=== PATIENT | female | born 1980 | race Caucasian/White ===

== ENCOUNTER 2018-02-05 22:10 | Emergency (ER) | payer SELFPAY | END 2018-02-05 22:47 | disposition left against medical advice (07) | LOC: ER 22:10 | DX: Z53.21 Procedure and treatment not carried out due to patient leaving prior to being seen by health care provider (principal) ==

== ENCOUNTER 2018-06-15 22:50 | Emergency (ER) | payer SELFPAY ==
--- NOTE | 2018-06-15 23:20 | EDPHYS ---
Physician Documentation [facility] Name: Roxie Nguyen Age: 38 yrs Sex: Female : 1980 Arrival Date: 06/15/2018 Time: 22:50 Bed 5 Private MD: Nat Caldwell H ED Physician Dru Ma HPI: 06/15 23:16 This 38 yrs old Female presents to ER via Unassigned with complaints of Ear jr8 Pain and jaw pain. 23:17 Patient stated that she has had lower left jaw and ear pain for the past couple of jr8 days. Stated that she has appointment with PCP tomorrow but could no longer tolerate the pain. Denies fevers at this time . Severity of symptoms: At their worst the symptoms were moderate in the emergency department the symptoms are unchanged. The patient has not experienced similar symptoms in the past. The patient has not recently seen a physician. 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 - Social history:: Smoking status: Patient uses tobacco products, smokes one pack cigarettes per day. - Ebola Screening: : No symptoms or risks identified at this time. ROS: 23:17 Eyes: Negative for injury, pain, redness, and discharge, Neck: Negative for injury, jr8 pain, and swelling, Cardiovascular: Negative for chest pain, palpitations, and edema, Respiratory: Negative for shortness of breath, cough, wheezing, and pleuritic chest pain, Abdomen/GI: Negative for abdominal pain, nausea, vomiting, diarrhea, and constipation, Back: Negative for injury and pain, MS/Extremity: Negative for injury and deformity, Skin: Negative for injury, rash, and discoloration, Neuro: Negative for headache, weakness, numbness, tingling, and seizure. 23:17 ENT: Positive for dental pain, ear pain, Negative for drainage from ear(s), rhinorrhea, sinus congestion, sinus pain, sore throat, difficulty swallowing, difficulty handling secretions. Exam: 23:17 Head/Face: Normocephalic, atraumatic. Eyes: Pupils equal round and reactive to light, jr8 extra-ocular motions intact. Lids and lashes normal. Conjunctiva and sclera are non-icteric and not injected. Cornea within normal limits. Periorbital areas with no swelling, redness, or edema. Neck: Trachea midline, no thyromegaly or masses palpated, and no cervical lymphadenopathy. Supple, full range of motion without nuchal rigidity, or vertebral point tenderness. No Meningismus. Cardiovascular: Regular rate and rhythm with a normal S1 and S2. No gallops, murmurs, or rubs. Normal PMI, no JVD. No pulse deficits. Respiratory: Lungs have equal breath sounds bilaterally, clear to auscultation and percussion. No rales, rhonchi or wheezes noted. No increased work of breathing, no retractions or nasal flaring. Abdomen/GI: Soft, non-tender, with normal bowel sounds. No distension or tympany. No guarding or rebound. No evidence of tenderness throughout. Back: No spinal tenderness. No costovertebral tenderness. Full range of motion. Skin: Warm, dry with normal turgor. Normal color with no rashes, no lesions, and no evidence of cellulitis. MS/ Extremity: Pulses equal, no cyanosis. Neurovascular intact. Full, normal range of motion. Neuro: Awake and alert, GCS 15, oriented to person, place, time, and situation. Cranial nerves II-XII grossly intact. Motor strength 5/5 in all extremities. Sensory grossly intact. Cerebellar exam normal. Normal gait. 23:17 ENT: External ear(s): are unremarkable, Ear canal(s): are normal, clear, TM's: are normal, no evidence of bulging, no dullness, no erythema, no fluid levels, no hemotympanum, no rupture, normal bony landmarks, normal mobility, Nose: External nose: no obvious acute abnormality, Nasal septum: is midline, Nasal mucosa: moist, Turbinates: are normal, Mouth: Lips: moist, Oral mucosa: pink and intact, moist, Gums: swollen, on the lower left second molar, Tongue: is moist, Posterior pharynx: Airway: patent, Tonsils: are normal in appearance, Uvula: midline, non-edematous, no erythema, swelling, is not appreciated, erythema, is not appreciated, Dental exam: dental caries, that is severe, specifically in the lower left second molar (#18), pain, that is moderate, specifically in the lower left second molar (#18). Vital Signs: 23:31 BP 173 / 105; Pulse 99; Resp 20; Temp 98(O); Pulse Ox 100% on R/A; Weight 63.5 kg; tl2 Height 5 ft. 3 in. (160.02 cm); Pain 10/10; 23:54 BP 159 / 108; Pulse 68; Resp 18; Pulse Ox 99% on R/A; tl2 23:31 Body Mass Index 24.80 (63.50 kg, 160.02 cm) tl2 MDM: 23:12 Patient medically screened. jr8 23:17 Data reviewed: vital signs, nurses notes, and as a result, I will discharge patient. jr8 Data interpreted: Pulse oximetry: on room air is 100 %. Interpretation: normal. Counseling: I had a detailed discussion with the patient and/or guardian regarding: the historical points, exam findings, and any diagnostic results supporting the discharge/admit diagnosis, the need for outpatient follow up, a dentist, to return to the emergency department if symptoms worsen or persist or if there are any questions or concerns that arise at home. Administered Medications: 23:46 Drug: TORadol 60 mg Route: IM; Site: left gluteus; tl2 23:55 Follow up: Response: No adverse reaction; Medication administered at discharge. tl2 23:46 Drug: traMADol 100 mg Route: PO; tl2 23:55 Follow up: Response: No adverse reaction; Medication administered at discharge. tl2 Disposition: 06/16 06:52 Co-signature as Attending Physician, Dru Ma MD I agree with the assessment and ps1 plan of care. Disposition: 06/15/18 23:20 Discharged to Home. Impression: Dentalgia, Dental caries. - Condition is Stable. - Discharge Instructions: Dental Abscess, Dental Caries, Adult. - Prescriptions for Ibuprofen 800 mg Oral Tablet - take 1 tablet by ORAL route every 12 hours As needed take with food; 20 tablet. Ultracet 37.5- 325 mg Oral Tablet - take 2 tablet by ORAL route every 6 hours - for up to 5 days; do not exceed 8 tablets per day.; 30 tablet. Amoxicillin 875 mg Oral Tablet - take 1 tablet by ORAL route every 12 hours for 10 days; 20 tablet. - Medication Reconciliation Form, Thank You Letter, Antibiotic Education, Prescription Opioid Use form. - Follow up: Private Physician; When: 1 week; Reason: Recheck today's complaints, Continuance of care, Re-evaluation by your physician. - Problem is new. - Symptoms have improved. Signatures: Raphael Ramsay PA PA jr8 Eleni Chauhan RN RN tl2 Dru Ma MD MD ps1 Corrections: (The following items were deleted from the chart) 06/15 23:56 23:20 06/15/2018 23:20 Discharged to Home. Impression: Dentalgia; Dental caries. tl2 Condition is Stable. Forms are Medication Reconciliation Form, Thank You Letter, Antibiotic Education, Prescription Opioid Use. Follow up: Private Physician; When: 1 week; Reason: Recheck today's complaints, Continuance of care, Re-evaluation by your physician. Problem is new. Symptoms have improved. jr8
[2018-06-15] MEDS ORDERED: KETOROLAC 30 MG/ML INJ ONE (23:47)
[2018-06-15] MEDS ORDERED: TRAMADOL HCL 50 MG TAB ONE (23:47)
--- NOTE | 2018-06-15 23:57 | ER ---
Nurse's Notes [facility] Name: Roxie Nguyen Age: 38 yrs Sex: Female : 1980 Arrival Date: 06/15/2018 Time: 22:50 Bed 5 Private MD: Nat Caldwell H Diagnosis: Dentalgia;Dental caries Presentation: 06/15 23:29 Presenting complaint: Patient states: My jaw on the right side hurts and it goes all tl2 the way to my ear. It's been hurting all afternoon. Transition of care: patient was not received from another setting of care. Onset of symptoms was June 15, 2018 at 16:00. Risk Assessment: Do you want to hurt yourself or someone else? Patient reports no desire to harm self or others. Initial Sepsis Screen: Does the patient meet any 2 criteria? No. Patient's initial sepsis screen is negative. Does the patient have a suspected source of infection? No. Patient's initial sepsis screen is negative. Care prior to arrival: None. 23:29 Method Of Arrival: Ambulatory tl2 23:29 Acuity: SHANELL 4 tl2 Triage Assessment: 23:31 General: Appears in no apparent distress. uncomfortable, Behavior is cooperative, tl2 appropriate for age, anxious. Pain: Complains of pain in left ear and left jaw and lower left second molar (#18) Pain currently is 10 out of 10 on a pain scale. Quality of pain is described as sharp. EENT: Poor dentition noted. Dental caries noted in lower left second molar (#18). Neuro: Level of Consciousness is awake, alert, obeys commands, Oriented to person, place, time, situation. Cardiovascular: Denies chest pain. Respiratory: Airway is patent Respiratory effort is even, unlabored, Respiratory pattern is regular, symmetrical. GI: No signs and/or symptoms were reported involving the gastrointestinal system. : No signs and/or symptoms were reported regarding the genitourinary system. Derm: Skin is pink, warm \T\ dry. 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 - Social history:: Smoking status: Patient uses tobacco products, smokes one pack cigarettes per day. - Ebola Screening: : No symptoms or risks identified at this time. Screenin:34 Abuse screen: Denies threats or abuse. Nutritional screening: No deficits noted. tl2 Tuberculosis screening: No symptoms or risk factors identified. Fall Risk None identified. Assessment: 23:35 General: see triage assessment. tl2 23:50 Reassessment: Patient appears in no apparent distress at this time. Patient and/or tl2 family updated on plan of care and expected duration. Pain level reassessed. Patient is alert, oriented x 3, equal unlabored respirations, skin warm/dry/pink. 23:54 Reassessment: PT verbalized understanding of discharge instructions, need for follow up tl2 and prescription usage. Vital Signs: 23:31 BP 173 / 105; Pulse 99; Resp 20; Temp 98(O); Pulse Ox 100% on R/A; Weight 63.5 kg; tl2 Height 5 ft. 3 in. (160.02 cm); Pain 10/10; 23:54 BP 159 / 108; Pulse 68; Resp 18; Pulse Ox 99% on R/A; tl2 23:31 Body Mass Index 24.80 (63.50 kg, 160.02 cm) tl2 ED Course: 22:50 Patient arrived in ED. ds1 22:50 Nat Caldwell DO is Private Physician. ds1 23:06 [facility]hael Ramsay [facility]. jr8 23:06 Dru Ma MD is Attending Physician. jr8 23:30 Triage completed. tl2 23:31 Arm band placed on right wrist. tl2 23:35 Patient has correct armband on for positive identification. Bed in low position. Call tl2 light in reach. 23:54 No provider procedures requiring assistance completed. Patient did not have IV access tl2 during this emergency room visit. Administered Medications: 23:46 Drug: TORadol 60 mg Route: IM; Site: left gluteus; tl2 23:55 Follow up: Response: No adverse reaction; Medication administered at discharge. tl2 23:46 Drug: traMADol 100 mg Route: PO; tl2 23:55 Follow up: Response: No adverse reaction; Medication administered at discharge. tl2 Outcome: 23:20 Discharge ordered by . iban 23:54 Discharged to home ambulatory, with family. tl2 23:54 Condition: stable 23:54 Discharge instructions given to patient, Instructed on discharge instructions, follow up and referral plans. medication usage, Demonstrated understanding of instructions, follow-up care, medications, Prescriptions given X 3. 23:56 Patient left the ED. tl2 Signatures: Veda Holder ds1 Raphael Ramsay PA PA jr8 Eleni Chauhan, RN RN tl2
== END 2018-06-15 23:56 | disposition home or self-care (01) ==
LOC: ER 22:50
DX: K02.9 Dental caries, unspecified (principal); Z88.1 Allergy status to other antibiotic agents; Z88.5 Allergy status to narcotic agent; F17.210 Nicotine dependence, cigarettes, uncomplicated; E11.9 Type 2 diabetes mellitus without complications; Z79.84 Long term (current) use of oral hypoglycemic drugs
CPT/HCPCS: 96372; 99283